=== PATIENT | female | born 1960 | race Caucasian/White ===

== ENCOUNTER 2024-02-27 13:13 | Outpatient (CLI) | payer BC, SELFPAY ==
--- NOTE | ~2024-02-27 | CT_ITS ---
Clinical Indication: Colon cancer, weight loss CT Scan of the Chest, Abdomen, and Pelvis with Contrast: Technique: Contiguous sections were acquired throughout the chest, abdomen, and pelvis after intraven ous administration of 100 cc of Omnipaque 350. Dose reduction technique was used on this scan by taran gómez automated exposure control and iterative reconstruction technique. The dose-length product (DL P) was 329.85 mGy-cm. Findings: There is no evidence of any significant mediastinal, hilar or axillary lymphadenopathy. The mediastin al soft tissues and vascular structures appear normal. There is no evidence of pleural or pericardial effusion. The lungs are clear, aside from mild biapical scarring. Small hepatic cysts are present. The spleen, pancreas, gallbladder, right adrenal gland, and kidneys are within normal limits. 1 cm left adrenal nodule is present, indeterminate. No evidence of aortic a neurysm. No lymphadenopathy. No bowel obstruction or bowel wall thickening. There is no evidence to suggest acute appendicitis. Ev idence of prior partial colectomy. Urinary bladder is unremarkable. No pelvic mass seen. No ascites. Impression: 1 cm indeterminate left adrenal nodule. Comparison to prior exams is recommended to assess for stabil ity/chronicity of this nodule. Alternatively, MR could be performed to attempt to confirm benign quyen wanda. Status post prior partial colectomy. Reviewed, dictated and finalized at location . Impression: 1 cm indeterminate left adrenal nodule. Comparison to prior exams is recommende d to assess for stability/chronicity of this nodule. Alternatively, MR could be performed to attempt to confirm benign adenoma. Status post prior partial colectomy.
[2024-02-28 13:33] LABS: Estimated Glomerular Filt Rate > 60
== END 2024-02-27 13:14 ==
PROVIDERS: PCP Internal Medicine
DX: Z85.038 Personal history of other malignant neoplasm of large intestine (principal); D35.02 Benign neoplasm of left adrenal gland
CPT/HCPCS: 71260; 74177; Q9967